=== PATIENT | male | born 1960 | race Caucasian/White ===

== ENCOUNTER 2018-04-19 10:58 | Day surgery (SDC) | payer BC ==
[2018-04-18 12:48] VITALS: BMI 27.8
--- NOTE | 2018-04-19 12:17 | HP ---
History & Physical Update - History History: No Change - Physical Physical: No Change - Assessment Assessment: No Change - Plan Plan: No Change
[2018-04-19] MEDS ORDERED: PROPOFOL 20 ML ONE ×2 (12:41)
[2018-04-19] MEDS ORDERED: LIDOCAINE HCL/PF 2% SDV 5ML VIAL ONE (12:41)
[2018-04-19] MEDS ORDERED: ROCURONIUM BROMIDE 50 MG/5 ML VIAL ONE ×2 (12:41→13:19)
[2018-04-19 12:43] LABS: URINE APPEARANCE CLEAR; URINE BILIRUBIN NEGATIVE (<2.0 mg/dL); URINE COLOR YELLOW; URINE GLUCOSE (UA) NEGATIVE (NEGATIVE); URINE KETONE NEGATIVE (NEGATIVE); URINE LEUK ESTERASE NEGATIVE (NEGATIVE); URINE NITRITE NEGATIVE (NEGATIVE); URINE PROTEIN NEGATIVE (NEGATIVE); URINE UROBILINOGEN NEGATIVE mg/dL (0.2-1.0)
[2018-04-19] MEDS ORDERED: LIDOCAINE HCL 1%, 10 MG/ML (20ML VIAL) NR ONE ×2 (13:18)
[2018-04-19] MEDS ORDERED: LIDOCAINE HCL 1%, 10 MG/ML (20ML VIAL) INF ONE (13:18)
[2018-04-19] MEDS ORDERED: BUPIVACAINE HCL/PF 0.5% (5MG/ML) 10 ML VIAL IJ ONE ×3 (13:19)
[2018-04-19] MEDS ORDERED: DESFLURANE GAS 240 ML BOTTLE IH ONE (13:21)
--- NOTE | 2018-04-19 14:24 | OP ---
Operative Note - Note: Operative Date: 04/19/18 Pre-Operative Diagnosis: left inguinal hernia Operation: repair left inguinal hernia w/mesh Findings: sliding indirect left inguinal hernia Surgeon: Tobias Hercules Bench Worker Hollow Handle: Hillary Greenberg Anesthesiologist/WIRE WINDING MACHINE OPERATOR: Ese Roque Anesthesia: General Specimens Removed: lipoma of the cord Estimated Blood Loss (mls): 15
--- NOTE | 2018-04-19 14:33 | SURG ---
Surgery Automobile Repossessor Note Automobile Repossessor: Hillary Greenberg PA-C (Suzy) Date of Service: 04/19/18 Diagnosis: left inguinal hernia Procedure: Repair left inguinal hernia w/mesh I was present for the entirety of the operative procedure. For further detail, please refer to operative report. Visit type - Case Type Case Type: Scheduled - Emergency Emergency Visit: No - New patient This patient is new to me today: Yes Date on this admission: 04/19/18 - Critical Care Critical Care patient: No
[2018-04-19] MEDS ORDERED: ONDANSETRON 4 MG/2 ML VIAL IVPUSH PRN (14:39)
[2018-04-19] MEDS ORDERED: PROMETHAZINE HCL 25 MG/1 ML VIAL IVPUSH PRN (14:39)
[2018-04-19] MEDS ORDERED: oxyCODONE HCL 5 MG TABLET PO PRN (14:39)
[2018-04-19] MEDS ORDERED: KETOROLAC TROMETHAMINE 30 MG/1 ML VIAL IVPUSH ONE (14:40)
[2018-04-19] MEDS ORDERED: LACTATED RINGERS SOLUTION 1,000 ML IV SCH (14:45)
[2018-04-19 16:28] VITALS: TEMP 99.6
[2018-04-19 19:09] VITALS: BP 125/72; PULSE 88
--- NOTE | 2018-04-23 17:32 | PATH ---
Surgical Pathology Report Patient Name: PATRICIA CARVER [facility]. Rec. #: [id number] /Age/Gender: 1960 (Age: 57) / M Account: [id number] Location: [facility] SURGICAL Taken: 04/19/2018 Received: 04/22/2018 Reported: 04/23/2018 Physicians: Tobias Hercules MD Specimen(s) Received LIPOMA OF LEFT SPERMATIC CORD Clinical History Left inguinal hernia Final Diagnosis SPERMATIC CORD, LEFT, LIPOMA, HERNIA REPAIR: BENIGN FIBROADIPOSE TISSUE COMPATIBLE WITH CORD LIPOMA. Electronically Signed Marianela Dodge M.D. Gross Description Received in formalin labeled "left lipoma of left spermatic cord," is a 5.5 x 2.7 x 1.1 cm portion of yellow, lobulated adipose tissue with attached fibromembranous tissue. Bulk Truck Driver sections are submitted in one cassette. /04/22/201804/22/2018
--- NOTE | 2018-04-29 20:44 | OP ---
DATE OF OPERATION: 04/19/2018 PREOPERATIVE DIAGNOSIS: Left inguinal hernia. POSTOPERATIVE DIAGNOSIS: Left inguinal hernia. PROCEDURE: Repair left inguinal hernia with mesh. SURGEON: Tobias Hercules M.D. DAIRY QUALITY ASSURANCE OFFICER: Avinash Coleman ANESTHESIA: General anesthesia. OPERATIVE FINDINGS: There was an indirect sliding left inguinal hernia. The floor of the inguinal canal was also attenuated, consistent with a direct hernia, and the rest of the findings were unremarkable. DESCRIPTION OF PROCEDURE: The patient was placed on the operating room table in the supine position, and after the induction of general anesthesia, the patient's left lower quadrant is prepped in Chloraprep and draped in sterile fashion, and timeout was taken. A transverse left groin incision made through skin and subcutaneous tissue and through Mark fascia. The external oblique fascia was divided proximally and then distally to the external ring in the direction of its fibers. The cord structures and nerve were elevated to the level of the pubic tubercle, and a [place] drain placed around them for retraction and identification purposes. The indirect hernia was identified with the sac in the substance of the cord. It was bluntly dissected up to the internal ring, where the sac was opened and the previously noted findings were observed, which consisted of an indirect sliding hernia on the left side. The sac was then closed and the hernia reduced, and a piece of Parietex ProGrip mesh was fashioned into the floor of the inguinal canal at the pubic tubercle, shelving edge, and conjoined tendon respectively with interrupted 2-0 Prolene. The keyhole was created from the cord structures and the tails of the mesh brought above the level of the internal ring an anchor there with interrupted 2-0 Prolene. Hemostasis was secured with electrocautery and wound copiously irrigated with sterile saline. The keyhole was checked for adequate sizing to allow for the passage of the cord, and then the cord structures and nerve were returned to their normal anatomic position, and the external oblique fascia closed over them, recreating the external ring using continuous 2-0 Vicryl. Mark fascia was reapproximated with interrupted 2-0 Vicryl, deep dermis with interrupted 3-0 Vicryl, and the skin edges with 4-0 Monocryl in subcuticular fashion. Steri-Strips and dry sterile dressings were placed, and the procedure terminated at this point, and the patient aroused from general anesthesia, and transferred to the post anesthesia care unit in stable condition awake and alert. Estimated blood loss 15 mL, replacements crystalloid, drains none, specimens none. I, Tobias Hercules, was physically present in the operating room from the time the patient was placed on the operating room table until he was transferred to the postanesthesia care unit in my accompaniment. MD JULIETA Masters/[id number]
== END 2018-04-19 17:25 | disposition home or self-care (01) ==
LOC: JASU-SURG 10:58
PROVIDERS: ATTEND Surgery
PROC: 0YU60JZ Supplement Left Inguinal Region with Synthetic Substitute, Open Approach (ICD-10-PCS; principal; 2018-04-19 12:30)
DX: K40.90 Unilateral inguinal hernia, without obstruction or gangrene, not specified as recurrent (principal)
CPT/HCPCS: 81003; 88304-TC; 94760

== ENCOUNTER 2023-01-08 05:32 | Day surgery (SDC) | payer BC ==
[2023-01-03 09:21] VITALS: BMI 26.6
[2023-01-08] MEDS ORDERED: BUPIVACAINE HCL/PF 0.25% (2.5MG/ML) 10 ML VIAL ONE (07:48)
[2023-01-08] MEDS ORDERED: oxyCODONE HCL 5 MG TABLET PO PRN ×2 (09:03)
[2023-01-08] MEDS ORDERED: PROMETHAZINE HCL 25 MG/1 ML VIAL IVPB PRN (09:03)
[2023-01-08] MEDS ORDERED: ONDANSETRON 4 MG/2 ML VIAL IVPUSH PRN (09:03)
[2023-01-08] MEDS ORDERED: ACETAMINOPHEN 1000 MG/100 ML BAG IVPB PRN (09:04)
[2023-01-08] MEDS ORDERED: LACTATED RINGERS SOLUTION 1,000 ML IV SCH (09:15)
[2023-01-08] MEDS ORDERED: MIDAZOLAM HCL 2 MG/2 ML SINGLE DOSE VIAL ONE (09:22)
[2023-01-08] MEDS ORDERED: PROPOFOL 20 ML ONE (09:22)
[2023-01-08] MEDS ORDERED: ROCURONIUM BROMIDE 50 MG/5 ML SYRINGE ONE ×2 (09:22→10:23)
[2023-01-08] MEDS ORDERED: DEXAMETHASONE SOD PHOSPHATE 4 MG/1 ML VIAL ONE (09:23)
[2023-01-08] MEDS ORDERED: ONDANSETRON 4 MG/2 ML VIAL ONE (09:23)
[2023-01-08] MEDS ORDERED: ceFAZolin SODIUM 1 GM VIAL ONE (09:23)
[2023-01-08] MEDS ORDERED: LIDOCAINE HCL/PF 2% SDV 5ML VIAL ONE (09:23)
[2023-01-08] MEDS ORDERED: KETOROLAC TROMETHAMINE 30 MG/1 ML VIAL ONE (09:23)
[2023-01-08] MEDS ORDERED: SEVOFLURANE 250 ML BTL ONE (09:24)
[2023-01-08] MEDS ORDERED: ceFAZolin SODIUM 1 GM VIAL IVPB ONE (10:10)
[2023-01-08] MEDS ORDERED: HYDROmorphone HCl 2 MG/ML VIAL ONE (10:37)
[2023-01-08] MEDS ORDERED: SUGAMMADEX SODIUM 200 MG/2 ML VIAL ONE (10:42)
[2023-01-08] MEDS ORDERED: BUPIVACAINE HCL/PF 0.25% (2.5MG/ML) 10 ML VIAL IJ ONE (10:53)
[2023-01-08] MEDS ORDERED: HEPARIN NA (PORCINE) 5,000 UNITS/ML 1ML VIAL SQ SCH (14:30)
[2023-01-08 15:18] VITALS: TEMP 98
[2023-01-08 17:14] VITALS: BP 140/79; PULSE 76; RESP 16
== END 2023-01-08 16:45 | disposition home or self-care (01) ==
LOC: JASU-SURG 05:32
PROVIDERS: ATTEND Surgery
PROC: 8E0W4CZ Robotic Assisted Procedure of Trunk Region, Percutaneous Endoscopic Approach (ICD-10-PCS; 2023-01-08)
PROC: 0WQF0ZZ Repair Abdominal Wall, Open Approach (ICD-10-PCS; 2023-01-08)
PROC: 0YU54JZ Supplement Right Inguinal Region with Synthetic Substitute, Percutaneous Endoscopic Approach (ICD-10-PCS; principal; 2023-01-08 10:00)
DX: K42.9 Umbilical hernia without obstruction or gangrene (principal); K40.90 Unilateral inguinal hernia, without obstruction or gangrene, not specified as recurrent
CPT/HCPCS: 49591; 49650; S2900; 94760; C1781

== ENCOUNTER 2024-08-04 09:13 | Observation (INO) | payer BC ==
[2024-08-04] MEDS ORDERED: FAMOTIDINE 20 MG/50 ML IVPB 20 MG/50 ML MG IVPB ONE (11:21)
[2024-08-04] MEDS ORDERED: MAG HYDROX/AL HYDROX/SIMETH 30 ML UNIT-DOSE CUP ONE (11:21)
[2024-08-04] MEDS ORDERED: ACETAMINOPHEN INJECTION 100 ML ONE (11:21)
[2024-08-04] MEDS: ACETAMINOPHEN 1000 MG/100 ML BAG IVPB ONE (11:42)
[2024-08-04] MEDS: SODIUM CHLORIDE 0.9% 500 ML INFUS.BAG IV ONE (11:42)
[2024-08-04] MEDS: MAG HYDROX/AL HYDROX/SIMETH 30 ML UNIT-DOSE CUP PO ONE (11:42)
[2024-08-04] MEDS: FAMOTIDINE 20 MG/50 ML IVPB 20 MG/50 ML MG IVPB ONE (11:42)
[2024-08-04 11:48] LABS: PH,URINE 8.5 (5.0-8.0); URINE APPEARANCE CLEAR; URINE BILIRUBIN NEGATIVE (NEGATIVE); URINE COLOR YELLOW; URINE GLUCOSE (UA) NEGATIVE (NEGATIVE); URINE KETONE 1+ (NEGATIVE); URINE LEUK ESTERASE NEGATIVE (NEGATIVE); URINE NITRITE NEGATIVE (NEGATIVE); URINE PROTEIN TRACE (NEGATIVE)
[2024-08-04 12:02] LABS: POTASSIUM 4.9 mmol/L (3.5-5.1)
[2024-08-04 12:03] LABS: BASO % 0.4 % (0-2.0); EOS % 0.3 % (0-4.5); HEMATOCRIT 43.1 % (35.4-49); HEMOGLOBIN 14.9 GM/dL (11.7-16.9); LYMPH % 5.3 % (8-40); MCH 31.4 pg (25.7-33.7); MCHC 34.5 g/dl (32.0-35.9); MEAN CELL VOLUME 91.1 fl (80-96); MEAN PLT VOLUME 9.1 fl (7.5-11.1); MONO % 4.8 % (3.8-10.2); NEUT % 89.2 % (42.8-82.8); PLATELET COUNT 150 10^3/uL (134-434); RBC 4.74 M/mm3 (4.00-5.60); RDW 13.1 % (11.9-15.9); WHITE BLOOD COUNT 8.5 K/mm3 (4.0-10.0)
[2024-08-04 12:04] LABS: ALBUMIN 4.4 g/dl (3.4-5.0); CALCIUM 9.5 mg/dL (8.5-10.1)
[2024-08-04 12:05] LABS: BLOOD UREA NITROGEN 14.8 mg/dL (7-18)
[2024-08-04 12:08] LABS: CREATININE 0.8 mg/dL (0.55-1.3)
[2024-08-04 12:09] LABS: BILIRUBIN,TOTAL 0.4 mg/dL (0.2-1); TOT PROT 7.3 g/dl (6.4-8.2)
[2024-08-04] MEDS ORDERED: morphine SULFATE 4 MG/ML VIAL ONE (16:16)
[2024-08-04] MEDS: morphine SULFATE 4 MG/ML VIAL IVPUSH ONE (16:22)
[2024-08-04] MEDS: LACTATED RINGERS SOLUTION 1,000 ML/1,000 ML INFUS.BAG IV SCH (18:54)
[2024-08-04 19:33] VITALS: RESP 18
[2024-08-04 20:58] VITALS: BMI 23.6
[2024-08-04] MEDS: ACETAMINOPHEN 1000 MG/100 ML BAG IVPB PRN (21:43)
[2024-08-05] MEDS: FLU VACCINE (FLULAVAL) PF 45 MCG/0.5 ML SYRINGE 2024-2025 IM ONE (05:53)
[2024-08-05 06:49] VITALS: PULSE 61
[2024-08-05] MEDS ORDERED: LACTATED RINGERS SOLUTION 1,000 ML/1,000 ML INFUS.BAG IV SCH (08:48)
[2024-08-05 10:05] LABS: BASO % 0.3 % (0-2.0); EOS % 0.3 % (0-4.5); HEMOGLOBIN 14.6 GM/dL (11.7-16.9); LYMPH % 5.1 % (8-40); MCH 31.5 pg (25.7-33.7); MCHC 34.9 g/dl (32.0-35.9); MEAN CELL VOLUME 90.3 fl (80-96); MONO % 6.7 % (3.8-10.2); NEUT % 87.6 % (42.8-82.8); PLATELET COUNT 148 10^3/uL (134-434); RBC 4.65 M/mm3 (4.00-5.60); RDW 13.2 % (11.9-15.9); WHITE BLOOD COUNT 8.8 K/mm3 (4.0-10.0)
[2024-08-05 10:46] LABS: CALCIUM 8.9 mg/dL (8.5-10.1)
[2024-08-05 10:48] LABS: BLOOD UREA NITROGEN 17.2 mg/dL (7-18)
[2024-08-05 10:52] LABS: CREATININE 0.8 mg/dL (0.55-1.3)
[2024-08-05 13:17] VITALS: BP 148/85; TEMP 99.1
== END 2024-08-05 13:18 | disposition home or self-care (01) ==
LOC: JER 09:13 → UNDOADMOB 16:03 → JERBED 16:03 → INTOOBSV 16:38 → UNDOADMOB 16:38 → JERBED 16:38 → J6S 19:29
PROVIDERS: ADMIT Internal Medicine; ATTEND Internal Medicine
PROC: 3E033NZ Introduction of Analgesics, Hypnotics, Sedatives into Peripheral Vein, Percutaneous Approach (ICD-10-PCS; principal; 2024-08-04)
PROC: 3E033GC Introduction of Other Therapeutic Substance into Peripheral Vein, Percutaneous Approach (ICD-10-PCS; 2024-08-04)
PROC: 3E0337Z Introduction of Electrolytic and Water Balance Substance into Peripheral Vein, Percutaneous Approach (ICD-10-PCS; 2024-08-04)
DX: K52.9 Noninfective gastroenteritis and colitis, unspecified (principal); E78.5 Hyperlipidemia, unspecified; Z87.738 Personal history of other specified (corrected) congenital malformations of digestive system; K56.600 Partial intestinal obstruction, unspecified as to cause; K57.90 Diverticulosis of intestine, part unspecified, without perforation or abscess without bleeding; I71.9 Aortic aneurysm of unspecified site, without rupture; Z88.0 Allergy status to penicillin
CPT/HCPCS: 36415; 71046-TC-FY; 71250-TC; 74176-TC; 80048; 80053; 81003; 83605; 83690; 83735; 84484; 85025; 87086; 93005; 93010; 99285-25; G0378; J0131